=== PATIENT | male | born 1945 ===

== ENCOUNTER 2021-12-23 06:25 | Day surgery (SDC) | payer OTHER ==
[~2021-12-23 06:25] MED LIST: ALENDRONATE PO; AMLODIPINE-OLM1 EAC2 PO; ATORVASTATIN CA20 MG PO; CELLCEPT500 MG PO; HUMULIN N100 UNIT/2; TACROLIMUS PO; TENORMIN25 MG PO
== END 2021-12-23 17:45 | disposition home or self-care (01) ==
LOC: CIR.AMB 06:25
PROVIDERS: ATTEND Otolaryngology Otology & Neurotology
DX: H71.22 Cholesteatoma of mastoid, left ear (principal)